=== PATIENT | male | born 1945 | race Caucasian/White ===

== ENCOUNTER → 2017-08-26 15:50 | Outpatient (CLI) | payer MEDICARE, OTHER, SELFPAY ==
--- NOTE | 2017-08-26 15:50 | DT_ITS ---
This patient was seen during an EMR downtime August 23, 2017 - August 30, 2017. This patient may have a combination of paper and electronic documentation or all paper documentation. All documentation is viewable within the e-chart portion of [facility] for each patient visit.
[2017-08-31 05:25] LABS: ALB/GLOB Ratio 1.1 RATIO (0.9-2.4); Albumin, Serum 3.5 g/dL (3.2-5.0); BUN 19 mg/dL (7-18); BUN/Creat Ratio 19.2 RATIO (10-20); Calcium,Total 8.1 mg/dL (8.5-10.1); Creatinine, Serum 0.99 mg/dL (0.70-1.30); EST Glomerular Filtration Rate 79 mL/min (>60); Est Glom Filt Rate - Afr Amer 96 mL/min (>60); Globulin 3.1 g/dL (2.2-4.2); Glucose 97 mg/dL (74-106); Protein, Total 6.6 g/dL (6.4-8.2)
[2017-08-31 05:26] LABS: AST(SGOT) 27 U/L (15-37); Alanine Aminotransfer ALT/SGPT 38 U/L (16-61); Alkaline Phosphatase 76 U/L (45-117)
[2017-08-31 06:06] LABS: Hematocrit 46.2 % (40-54); Hemoglobin 14.9 g/dl (13.0-16.5); Lymphocyte % 30.1 % (19-41); Mean Corpuscular Hgb 96.3 pg (27.0-32.0); Mean Corpuscular Volume 46.2 fL (80-94); Mean Platelet Vol. 10.8 fl (6.2-12.0); Neutrophil % 58.8 % (47-70); POSITIVE COUNT NO; POSITIVE DIFFERENTIAL NO; POSITIVE MORPHOLOGY NO; Platelet Count 246 K/mm3 (150-450); RBC Distribution Width CV 13.1 % (11.6-14.6)
[2017-08-31 06:07] LABS: Absolute Lymphocyte Count 2.12 X10^3/ul (0.83-4.51); Absolute Neutrophil Count 4.1 X10^3/uL (2.0-7.7); Basophil# 0.04 X10^3/uL; Basophil% 0.6 % (0-1); Eosinophil# 0.09 X10^3/uL; Eosinophils% 1.3 % (0-5); Lymphocyte # 2.12 X10^3/ul (4.0); Monocyte# 0.64 X10^3/uL; Monocyte% 9.1 % (0-10); Neutrophil # 4.14 X10^3/uL (2.7-7.7)
[2017-08-31 06:13] LABS: Anion Gap 5 (5-15); Chloride 109 mmol/L (98-107); PSA,Total - Annual Screen 1.35 ng/mL (0.00-4.00); Potassium 3.9 mmol/L (3.5-5.1); Sodium Level 145 mmol/L (136-145); Thyroid Stim Hormone (TSH) 1.77 uIU/mL (0.358-3.74)
[2017-08-31 09:47] LABS: Vitamin D,25 Hydroxy 12.4 ng/mL (29.95-100.01)
== END ==
PROVIDERS: Family Provider Family Medicine Geriatric Medicine; PCP Family Medicine Geriatric Medicine; Visit Provider Family Medicine Geriatric Medicine
DX: E55.9 Vitamin D deficiency, unspecified (principal); R53.83 Other fatigue; Z12.5 Encounter for screening for malignant neoplasm of prostate
CPT/HCPCS: 80053; 80061; 82306; 84153; 84443; 85025; G0103